=== PATIENT | female | born 1945 | race Caucasian/White ===

== ENCOUNTER → 2017-01-28 | Outpatient (CLI) | payer OTHER | LOC: FIMAGING 12:56 | PROVIDERS: ATTEND Family Medicine | DX: M81.0 Age-related osteoporosis without current pathological fracture (principal) | CPT/HCPCS: G0202 ==

== ENCOUNTER → 2017-10-02 | Outpatient (CLI) | payer OTHER | LOC: FIMAGING 09:39 | PROVIDERS: ATTEND Internal Medicine Gastroenterology | DX: R13.19 Other dysphagia (principal) ==

== ENCOUNTER → 2017-12-19 | Outpatient (CLI) | payer OTHER | LOC: FIMAGING 10:10 | PROVIDERS: ATTEND Internal Medicine Endocrinology, Diabetes & Metabolism | DX: Z13.820 Encounter for screening for osteoporosis (principal); M81.0 Age-related osteoporosis without current pathological fracture; Z78.0 Asymptomatic menopausal state ==

== ENCOUNTER → 2018-01-08 | Outpatient (CLI) | payer OTHER | LOC: FCPNEURO 20:00 | PROVIDERS: ATTEND Student in an Organized Health Care Education/Training Program | DX: G47.33 Obstructive sleep apnea (adult) (pediatric) (principal) ==

== ENCOUNTER → 2018-01-26 | Outpatient (CLI) | payer OTHER ==
[~2018-01-26] MED LIST: GADOBUTROL 10 ML VIAL IVP ONE
== END ==
LOC: FIMAGING 08:11
PROVIDERS: ATTEND Internal Medicine Gastroenterology
DX: K86.2 Cyst of pancreas (principal)
CPT/HCPCS: A9585

== ENCOUNTER → 2018-11-25 | Outpatient (CLI) | payer OTHER | LOC: BMCIMAGING 16:56 | PROVIDERS: ATTEND Family Medicine | DX: J40 Bronchitis, not specified as acute or chronic (principal) ==